=== PATIENT | female | born 2000 | race Caucasian/White ===

== ENCOUNTER 2021-04-09 18:16 | Emergency (ER) | payer SELFPAY ==
--- NOTE | ~2021-04-09 | XR_ITS ---
EXAMINATION: XR ANKLE, RIGHT CLINICAL INFORMATION: Pain and swelling COMPARISON: None TECHNIQUE: AP, lateral, and mortise views of the right ankle. FINDINGS: There is marked soft tissue swelling laterally. No fracture. Alignment is anatomic. Joint spaces are maintained. No joint effusion. XR/XR ankle RT min 3V IMPRESSION: Lateral soft tissue swelling without fracture.
[2021-04-09 22:02] VITALS: BP 117/61; PULSE 89; RESP 16; TEMP 36.2; O2SAT 99; BMI 28.3
== END 2021-04-10 01:58 | disposition left against medical advice (07) ==
PROVIDERS: Emergency Provider Emergency Medicine
DX: S99.921A Unspecified injury of right foot, initial encounter (principal); X58.XXXA Exposure to other specified factors, initial encounter; Y93.9 Activity, unspecified; Y92.9 Unspecified place or not applicable; Y99.9 Unspecified external cause status
CPT/HCPCS: 73610; 99281; 99283

== ENCOUNTER 2024-09-17 16:57 | Emergency (ER) | payer OTHER, SELFPAY ==
--- NOTE | ~2024-09-17 | XR_ITS ---
CLINICAL HISTORY: cough 2 view chest x-ray Comparison: None Findings: Heart size is normal. No consolidation, pleural effusion or pneumothorax. No acute fracture. IMPRESSION: 1. No acute findings. This document has been electronically signed by: Cari Last MD on 09/17/2024 17:50:47
[2024-09-17 17:12] VITALS: BP 123/63; PULSE 121; RESP 18; TEMP 37; O2SAT 96; BMI 39.3
--- NOTE | 2024-09-17 17:13 | ED_ITS ---
HPI - URI/Sore Throat General Chief Complaint: Upper Respiratory Symptoms Stated Complaint: Throat pain, congestion, headache, bodyache Time Seen by Provider: 09/17/24 18:39 Source: patient, RN notes reviewed and old records reviewed Mode of arrival: ambulatory History of Present Illness ED Provider: Chastity Bales PA-C HPI Narrative: 24-year-old female no significant past medical history presenting to the ED complaining of subjective fever, dry cough, sore throat, myalgias since last night. Reports chest discomfort with coughing. Denies shortness of breath, sick contacts, difficulty or inability to swallow, ear pain Related Data Previous Rx's ?Medication ?Instructions ?Recorded amoxicillin 875 mg-potassium 1 tab PO BID 7 days #14 tabs 09/17/24 clavulanate 125 mg tablet benzonatate 100 mg capsule 100 mg PO TID PRN cough #14 caps 09/17/24 Allergies Allergy/AdvReac Type Severity Reaction Status Date / Time No Known Allergies Allergy Verified 09/17/24 17:16 Review of Systems Review of Systems: Yes all other systems are reviewed and are negative Constitutional: Constitutional: Reports as per [facility] Past Medical History Attestation statement: The following information was validated with the patient. Source: old records reviewed Physical Exam Vital Signs: Vital Signs: Last Vital Signs Temp 98.6 F 09/17/24 17:12 Pulse 95 09/17/24 18:38 Resp 18 09/17/24 17:12 BP 123/63 09/17/24 17:12 Pulse Ox 98 09/17/24 18:38 O2 Del Method Room Air 09/17/24 17:12 BMI result Body Mass Index 39.3 Const: General: cooperative, healthy appearing and no acute distress Orientation/consciousness: patient oriented x3 Limitations: no limitations HEENT: Head: Yes normal to inspection and Yes atraumatic Ears: hearing grossly normal bilaterally, external ears normal and mastoids normal General nose exam: Normal external nose present Face and sinus: Yes normal facial exam Mouth: no drooling Throat: Yes uvula midline, Yes abnormal tonsil ( mildly swollen/erythematous. No exudates), No peritonsillar mass, No uvula laterally displaced and No uvular edema Eyes: General: appearance normal, both eyes and all related structures EOM: EOMs intact bilaterally Neck: Neck: Yes normal visual inspection and Yes no meningeal signs Resp: Effort & Inspection: normal respiratory effort, Actively coughing Quality: dry, no respiratory distress and no stridor Auscultation: clear to auscultation bilaterally, no crackles, no rhonchi and no wheezes Cardio: Rate: regular rate Heart sounds: S1 normal heart sound present and S2 normal heart sound present Skin: Rashes: no rashes Wounds: no wounds Neuro: General: patient oriented x3, tone normal and no meningeal signs Cranial nerves: Yes CN's II-XII intact bilaterally Gait exam (Neuro): Normal gait present Extrem: General: Yes normal to inspection Course Course Course Narrative: This is a Rapid Medical Exam performed in triage by Chastity Bales PA-C. Full HPI, ROS and PE to be performed by primary ED provider. 24 yo F presenting to the ED c/o fever, cough, sore throat, myalgias x last night. +CP when coughing. denies SOB PE: taking in complete sentences, +congested, lungs CTA, +dry cough appreciated, uvula midline. Mild tonsillar swelling, no exudates Plan: SARs, rapid strep, CXR - rapid strep positive. COVID/flu / RSV negative - CXR unremarkable Results discussed with patient including worrisome signs and symptoms and strict return precautions, and when to return to the emergency department. They verbal ized understanding and feel safe for discharge at this time. Medical Decision Making Medical Decision Making [facility] Narrative: 24-year-old female no significant past medical history presenting to the ED complaining of subjective fever, dry cough, sore throat, myalgias since last night. on exam initially tachycardic, NAD, nontoxic appearing physical exam as noted above. Actively coughing during evaluation, lungs CTA, no respiratory distress. Bilateral tonsillar swelling/ erythema appreciated without exudates. Uvula midline. Concern for viral illness vs pneumonia vs bronchitis vs strep pharyngitis. No evidence of [employer] /retropharyngeal abscess Plan: Viral testing, rapid strep, CXR Please refer to course for remaining clinical decision making, interpretation of labs/imaging results, and discussions with consultants and/or family members. Differential Diagnosis Differential Diagnoses: The differential diagnosis associated with the presentation includes As above Lab Data [facility] Lab Attestation statement: I reviewed the patient's lab results. Labs: Lab Results 06/05/25 Range/Units 17:40 Influenza Type A (PCR) NEGATIVE (Negative) Influenza Type B (PCR) NEGATIVE (Negative) RSV RNA Qual (PCR) NEGATIVE (Negative) SARS-CoV-2 RNA (RT-PCR) NEGATIVE (Negative) S. pyogenes GrpA ELIAZAR Positive A (Negative) Radiology Impression Discussion of test interpretation with radiology: I have reviewed the [facility] ologist's reading. External Record Review External record reviewed: Inpatient record, Office record, Outpatient record, Prior outpatient labs, Prior outpatient radiology, Primary care record and Outside ED record Tests considered The following testing was considered but not selected: As above Prescription Management I considered prescription management with: Pain Medication and Antibiotic Chronic Conditions Patient?s care impacted by: Other Social Determinants Patient?s care significantly limited by Social Determinants of Health including: Other Social Determinant of Health Discharge Plan Discharge Clinical Impression: Strep throat Patient Disposition: Home, Self-Care Instructions: Strep Throat (DC) Additional Instructions: You have strep throat. Augmentin as an antibiotic please take as prescribed until completion Tessalon Perles for cough Make sure you are staying hydrated. Drink plenty of fluids. Rest Alternate Tylenol and Motrin at home as needed for body aches and fever Follow-up with your doctor. If symptoms persist or worsen return to the emergency department *If you are a child & not tolerating liquid or urinating for more than 6 hours, or fevers are uncontrolled with medications at home, return to the emergency department* Prescriptions: New benzonatate 100 mg capsule 100 mg PO TID PRN (Reason: cough) Qty: 14 0RF amoxicillin-pot clavulanate 875-125 mg tablet 1 tab PO BID 7 Days Qty: 14 0RF Referrals: Physician,Unknown J [Primary Care Provider] - 5 days Stand Alone Forms: Work/School Release Print Language: Georgian
[2024-09-17 17:53] LABS: IDNOW Serial# 58CA691E; Strep A Nucleic Acid Positive (Negative)
[2024-09-17 18:21] LABS: Influenza A PCR NEGATIVE (Negative); Influenza B PCR NEGATIVE (Negative); Resp Syncy Virus RNA Qual PCR NEGATIVE (Negative); SARS COV2 PCR INHOUSE NEGATIVE (Negative)
[2024-09-17 18:38] VITALS: PULSE 95; O2SAT 98
[2024-09-17 18:43] VITALS: BP 130/66; PULSE 95; RESP 18; TEMP 37.1; O2SAT 98
== END 2024-09-17 18:53 | disposition home or self-care (01) ==
LOC: HO.ED 18:51
PROVIDERS: Physician Assistant; Emergency Provider Internal Medicine
DX: J02.0 Streptococcal pharyngitis (principal); R51.9 Headache, unspecified; M79.10 Myalgia, unspecified site; R09.89 Other specified symptoms and signs involving the circulatory and respiratory systems; R07.89 Other chest pain; R05.9 Cough, unspecified; Z03.818 Encounter for observation for suspected exposure to other biological agents ruled out
CPT/HCPCS: 0241U; 71046; 87651; 99282; 99283

== ENCOUNTER → 2024-09-17 17:17 | Outpatient (BNV) | payer OTHER, MEDICAID, SELFPAY | PROVIDERS: Visit Provider Specialist | DX: R05.9 Cough, unspecified (principal) | CPT/HCPCS: 71046 ==

== ENCOUNTER 2024-11-22 18:34 | Emergency (ER) | payer BC, SELFPAY ==
--- NOTE | ~2024-11-22 | XR_ITS ---
CLINICAL HISTORY: pain, injury 2 view left femur Comparison: None provided Findings: No fractures or dislocations. No knee effusion. No significant arthritic change. No radiopaque foreign body. IMPRESSION: 1. Normal left femur This document has been electronically signed by: Getachew Beth MD on 11/22/2024 19:36:29
--- NOTE | ~2024-11-22 | XR_ITS ---
CLINICAL HISTORY: pain, injury 2 view left tibia-fibula Comparison: None provided Findings No fractures or dislocations. No joint effusion. No significant arthritic change. No radiopaque foreign body. IMPRESSION: 1. Normal left tibia-fibula This document has been electronically signed by: Getachew Beth MD on 11/22/2024 19:37:53
[2024-11-22 18:43] VITALS: BP 115/59; PULSE 106; RESP 16; TEMP 37.1; O2SAT 99; BMI 45.4
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
[2024-11-22 22:51] VITALS: BP 115/72; PULSE 102; RESP 18; TEMP 36.7; O2SAT 100
[2024-11-23] MEDS: oxyCODONE HCl Immed Release 5 MG TABLET PO (00:33)
[2024-11-23 01:00] VITALS: BP 115/72; PULSE 102; RESP 18; TEMP 36.7; O2SAT 100
== END 2024-11-23 01:00 | disposition home or self-care (01) ==
PROVIDERS: Emergency Provider Emergency Medicine Emergency Medical Services
DX: S80.812A Abrasion, left lower leg, initial encounter (principal); M79.605 Pain in left leg; W05.1XXA Fall from non-moving nonmotorized scooter, initial encounter; Y93.9 Activity, unspecified; Y92.410 Unspecified street and highway as the place of occurrence of the external cause; Y99.8 Other external cause status
CPT/HCPCS: 73552; 73590; 99283; 99284

== ENCOUNTER → 2024-11-22 18:57 | Outpatient (BNV) | payer OTHER, MEDICAID, SELFPAY | PROVIDERS: Visit Provider Radiology Diagnostic Radiology | DX: M79.652 Pain in left thigh (principal); M79.662 Pain in left lower leg | CPT/HCPCS: 73552; 73590 ==